=== PATIENT | male | born 1990 | race Caucasian/White ===

== ENCOUNTER 2023-10-19 06:15 | Day surgery (SDC) | payer MEDICAID ==
[~2023-10-19] VITALS: Ht 172.7 cm; Wt 90.7 kg
[2023-10-19] MEDS ORDERED: ACETAMINOPHEN I.V. 1000 MG 100 ML IV ONE (07:46)
[2023-10-19] MEDS ORDERED: hydrALAZINE HCL 20 MG/ML VIAL IVP PRN (08:45)
[2023-10-19] MEDS ORDERED: METOCLOPRAMIDE HCL 10 MG/2 ML VIAL IVP PRN (08:45)
[2023-10-19] MEDS ORDERED: HYDROmorphone 1 MG/ML INJ. CARTRIDGE IVP PRN ×2 (08:45)
[2023-10-19] MEDS ORDERED: MEPERIDINE HCL/PF 25 MG/ML DISP.SYRIN IVP PRN (08:45)
[2023-10-19] MEDS ORDERED: LABETALOL 100 MG/ 20ML VIAL IVP PRN (08:45)
[2023-10-19] MEDS ORDERED: MIDAZOLAM HCL 2 MG/2 ML VIAL (VERSED) IVP PRN (08:45)
[2023-10-19] MEDS ORDERED: LR 1,000 ML IV SCH (08:45)
[2023-10-19 10:38] VITALS: O2SAT 98
[2023-10-19] MEDS ORDERED: EPINEPHrine HCL 1 MG/ML VIAL ONE (10:45)
[2023-10-19] MEDS ORDERED: MIDAZOLAM HCL 5 MG/ML VIAL (VERSED) IV ONE (10:45)
[2023-10-19] MEDS ORDERED: LIDOCAINE/EPI 1% 1:100000 20 ML VIAL ONE (10:45)
[2023-10-19] MEDS ORDERED: NS 1000 ML IV.SOLN IV ONE (10:45)
[2023-10-19] MEDS ORDERED: SUGAMMADEX SODIUM 200 MG/2 ML VIAL IV ONE (10:45)
[2023-10-19] MEDS ORDERED: DEXAMETHASONE SOD PHOSPHATE 4 MG/ML VIAL ONE (10:45)
[2023-10-19] MEDS ORDERED: LR 1,000 ML IV.SOLN IV ONE (10:45)
[2023-10-19] MEDS ORDERED: LIDOCAINE 2%, 20 ML MDV ONE (10:45)
[2023-10-19] MEDS ORDERED: NS IRRIG SOLN 1000 ML IR ONE (10:45)
[2023-10-19] MEDS ORDERED: BACITRACIN ZINC 15 GM TOPICAL OINTMENT TP ONE (10:45)
[2023-10-19] MEDS ORDERED: OXYMETAZOLINE HCL 0.05% NASAL SPRAY NS ONE (10:45)
[2023-10-19] MEDS ORDERED: ONDANSETRON HCL 4 MG/2 ML VIAL ONE (10:45)
[2023-10-19] MEDS ORDERED: ROCURONIUM BROMIDE 10 MG/ML (ZEMURON) ONE (10:45)
[2023-10-19] MEDS ORDERED: DESFLURANE 15 MIN GAS INH ONE (10:45)
[2023-10-19] MEDS ORDERED: PROPOFOL 200MG/ 20ML VIAL (DIPRIVAN) IV ONE (10:45)
[2023-10-19] MEDS ORDERED: fentaNYL CITRATE/PF 100 MCG/2 ML AMP ONE ×2 (10:45)
[2023-10-19] MEDS ORDERED: LABETALOL HCL 20 MG/4 ML CARTRIDGE IVP ONE (11:11)
[2023-10-19] MEDS: hydrALAZINE HCL 20 MG/ML VIAL ONE ×3 (13:30→15:15)
[2023-10-19] MEDS ORDERED: LABETALOL HCL 20 MG/4 ML CARTRIDGE IVP PRN (15:45)
[2023-10-19 18:09] VITALS: BP_SYST 146; PULSE 102; RESP 18
== END 2023-10-19 17:10 | disposition home or self-care (01) ==
LOC: SDS 06:15 → SMU 06:15 → SDS 17:10
PROVIDERS: ATTEND Otolaryngology
DX: D38.5 Neoplasm of uncertain behavior of other respiratory organs (principal); J34.2 Deviated nasal septum; K21.9 Gastro-esophageal reflux disease without esophagitis; R22.0 Localized swelling, mass and lump, head; F33.9 Major depressive disorder, recurrent, unspecified; E66.3 Overweight
CPT/HCPCS: 31298; 30520; 30140; 31255; 31256; 31240; 88304; 88305; 88311; J3490; J1100; J0171; J0360; J2001; J2250; J2405; J2704; J3010; J7120; J7030; A4649; C1726; J0131